=== PATIENT | male | born 1930 | race Caucasian/White ===

== ENCOUNTER 2016-11-02 09:29 | Outpatient (CLI) | payer MEDICARE, OTHER | END 2016-11-02 09:30 | disposition home or self-care (01) | DX: I48.91 Unspecified atrial fibrillation (principal) ==

== ENCOUNTER 2016-11-29 08:00 | Outpatient (CLI) | payer MEDICARE, OTHER | END 2016-11-29 08:01 | disposition home or self-care (01) | DX: I48.91 Unspecified atrial fibrillation (principal) ==

== ENCOUNTER 2016-12-27 08:00 | Outpatient (CLI) | payer MEDICARE, OTHER | END 2016-12-27 08:01 | disposition home or self-care (01) | DX: I48.91 Unspecified atrial fibrillation (principal) ==

== ENCOUNTER 2017-01-23 08:00 | Outpatient (CLI) | payer MEDICARE, OTHER | END 2017-01-23 08:01 | disposition home or self-care (01) | DX: I48.91 Unspecified atrial fibrillation (principal) ==

== ENCOUNTER 2017-02-20 08:00 | Outpatient (CLI) | payer MEDICARE, OTHER | END 2017-02-20 08:01 | disposition home or self-care (01) | DX: I48.91 Unspecified atrial fibrillation (principal) ==

== ENCOUNTER 2017-03-21 08:00 | Outpatient (CLI) | payer MEDICARE, OTHER | END 2017-03-21 08:01 | disposition home or self-care (01) | LOC: LAB.N 08:00 | PROVIDERS: ATTEND Internal Medicine | DX: I48.91 Unspecified atrial fibrillation (principal) | CPT/HCPCS: 85610 ==

== ENCOUNTER 2017-03-28 08:00 | Outpatient (CLI) | payer MEDICARE, OTHER | END 2017-03-28 08:01 | disposition home or self-care (01) | LOC: LAB.N 08:00 | PROVIDERS: ATTEND Internal Medicine | DX: I48.91 Unspecified atrial fibrillation (principal) | CPT/HCPCS: 85610 ==

== ENCOUNTER 2017-04-12 23:42 | Outpatient (CLI) | payer MEDICARE, OTHER | END 2017-04-12 23:43 | disposition home or self-care (01) | LOC: LAB.N 23:42 | PROVIDERS: ATTEND Internal Medicine | DX: I48.91 Unspecified atrial fibrillation (principal) | CPT/HCPCS: 85610 ==

== ENCOUNTER 2017-04-26 09:15 | Outpatient (CLI) | payer MEDICARE, OTHER | END 2017-04-26 23:59 | disposition home or self-care (01) | LOC: LAB.N 09:15 | PROVIDERS: ATTEND Internal Medicine | DX: I48.91 Unspecified atrial fibrillation (principal) | CPT/HCPCS: 85610 ==

== ENCOUNTER 2017-05-10 08:00 | Outpatient (CLI) | payer MEDICARE, OTHER | END 2017-05-10 08:01 | disposition home or self-care (01) | LOC: LAB.N 08:00 | PROVIDERS: ATTEND Internal Medicine | DX: I48.91 Unspecified atrial fibrillation (principal) | CPT/HCPCS: 85610 ==

== ENCOUNTER 2017-05-24 08:00 | Outpatient (CLI) | payer MEDICARE, OTHER | END 2017-05-24 08:01 | disposition home or self-care (01) | LOC: LAB.N 08:00 | PROVIDERS: ATTEND Internal Medicine | DX: I48.91 Unspecified atrial fibrillation (principal) | CPT/HCPCS: 85610 ==

== ENCOUNTER 2017-06-21 08:00 | Outpatient (CLI) | payer OTHER | END 2017-06-21 08:01 | disposition home or self-care (01) | LOC: LAB.N 08:00 | PROVIDERS: ATTEND Internal Medicine | DX: I48.91 Unspecified atrial fibrillation (principal) | CPT/HCPCS: 85610 ==

== ENCOUNTER 2017-06-26 07:06 | Outpatient (CLI) | payer OTHER, MEDICARE ==
[2017-06-26 07:52] LABS: CREATININE 0.8 mg/dL (0.6-1.2)
[2017-06-26] MEDS ORDERED: GADOBUTROL 7.5 MMOL/7.5 ML VIAL IVP ONE (08:38)
--- NOTE | 2017-06-26 11:31 | MRI Report ---
EXAM: MRI BRAIN AND INTERNAL AUDITORY CANAL (IAC) EXAM DATE: 06/26/2017 08:51 AM. CLINICAL HISTORY: PROFOUND HEARING LOSS. COMPARISON: None. TECHNIQUE: Multiplanar, multisequence T1-weighted and fluid-sensitive MRI sequences of the brain and IACs were performed. Other: None. IV Contrast: 7.5 cc GADAVIST. FINDINGS: Brain Volume: Normal for age. Parenchyma/Dura: No acute parenchymal hemorrhage, mass, or midline shift. Mild bilateral areas of T2/ FLAIR signal hyperintensity seen. No areas of restricted diffusion to suggest acute infarct. Pituitary: Normal. Internal Auditory Canals (IACs): Normal. No cranial nerve lesion or inflammatory process identified. Ventricles/Cisterns: No definite abnormal extra-axial fluid collection/mass seen. 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 Ventricles and sulci appear prominent but victor manuel ropriate for extent of volume loss. Cisterns are patent. Fluid is seen within Meckel's caves. Sinuses: Mild mucosal thickening of the ethmoid air cells. Mastoid air cells and middle ear cavities are clear. The semicircular canals and cochlea appear normal. Orbits: Changes of bilateral lens replacement. Vasculature: Visualized major intracranial flow voids appear maintained. Dural sinuses appear patent. Bones: Normal. Other: No definite areas of abnormal postcontrast enhancement seen. IMPRESSION: 1. No definite acute infarct, acute intracranial hemorrhage, mass, hydrocephalus, or abnormal postcon trast enhancement. 2. The cerebellopontine angles and internal auditory canals appear clear with no mass or masslike enh ancement seen. 3. The semicircular canals and cochlea appear normal and demonstrate normal fluid signal intensity. 4. Mild white matter changes that while nonspecific most likely represent sequela of chronic small ve ssel ischemic disease. [facility] Referring Provider Line: [phone] SITE ID: [id number]
== END 2017-06-26 07:07 | disposition home or self-care (01) ==
LOC: LAB 07:06
PROVIDERS: ATTEND Physician Assistant Surgical
DX: H91.90 Unspecified hearing loss, unspecified ear (principal)
CPT/HCPCS: 36415; 70543; 82565; A9585

== ENCOUNTER 2017-07-19 15:15 | Outpatient (CLI) | payer MEDICARE, OTHER | END 2017-07-19 15:16 | disposition home or self-care (01) | LOC: LAB.N 15:15 | PROVIDERS: ATTEND Internal Medicine | DX: I48.91 Unspecified atrial fibrillation (principal) | CPT/HCPCS: 85610 ==

== ENCOUNTER 2017-08-30 08:03 | Outpatient (CLI) | payer MEDICARE, OTHER | END 2017-08-30 08:04 | disposition home or self-care (01) | LOC: LAB.N 08:03 | PROVIDERS: ATTEND Internal Medicine | DX: I48.91 Unspecified atrial fibrillation (principal) | CPT/HCPCS: 85610 ==

== ENCOUNTER 2017-09-29 08:00 | Outpatient (CLI) | payer MEDICARE, OTHER | END 2017-09-29 08:01 | disposition home or self-care (01) | LOC: LAB.N 08:00 | PROVIDERS: ATTEND Internal Medicine | DX: I48.91 Unspecified atrial fibrillation (principal) | CPT/HCPCS: 85610 ==

== ENCOUNTER 2017-10-12 08:11 | Outpatient (CLI) | payer MEDICARE, OTHER | END 2017-10-12 08:12 | disposition home or self-care (01) | LOC: LAB.N 08:11 | PROVIDERS: ATTEND Internal Medicine | DX: I48.91 Unspecified atrial fibrillation (principal) | CPT/HCPCS: 85610 ==

== ENCOUNTER 2017-10-26 08:00 | Outpatient (CLI) | payer MEDICARE, OTHER | END 2017-10-26 08:01 | disposition home or self-care (01) | LOC: LAB.N 08:00 | PROVIDERS: ATTEND Internal Medicine | DX: I48.91 Unspecified atrial fibrillation (principal) | CPT/HCPCS: 85610 ==

== ENCOUNTER 2017-11-22 08:51 | Outpatient (CLI) | payer MEDICARE | END 2017-11-22 08:52 | disposition home or self-care (01) | LOC: LAB.N 08:51 | PROVIDERS: ATTEND Internal Medicine | DX: I48.91 Unspecified atrial fibrillation (principal) | CPT/HCPCS: 85610 ==

== ENCOUNTER 2017-12-20 08:00 | Outpatient (CLI) | payer MEDICARE | END 2017-12-20 08:01 | disposition home or self-care (01) | LOC: LAB.N 08:00 | PROVIDERS: ATTEND Internal Medicine | DX: I48.91 Unspecified atrial fibrillation (principal) | CPT/HCPCS: 85610 ==

== ENCOUNTER 2018-01-16 08:00 | Outpatient (CLI) | payer MEDICARE | END 2018-01-16 08:01 | disposition home or self-care (01) | LOC: LAB.N 08:00 | PROVIDERS: ATTEND Internal Medicine | DX: I48.91 Unspecified atrial fibrillation (principal) | CPT/HCPCS: 85610 ==

== ENCOUNTER 2018-01-30 08:15 | Outpatient (CLI) | payer MEDICARE | END 2018-01-30 08:16 | disposition home or self-care (01) | LOC: LAB.N 08:15 | PROVIDERS: ATTEND Internal Medicine | DX: I48.91 Unspecified atrial fibrillation (principal) | CPT/HCPCS: 85610 ==

== ENCOUNTER 2018-02-28 07:54 | Outpatient (CLI) | payer MEDICARE | END 2018-02-28 07:55 | LOC: LAB.N 07:54 | PROVIDERS: ATTEND Internal Medicine | DX: I48.91 Unspecified atrial fibrillation (principal) | CPT/HCPCS: 85610 ==

== ENCOUNTER 2018-03-13 08:00 | Outpatient (CLI) | payer MEDICARE | END 2018-03-13 08:01 | disposition home or self-care (01) | LOC: LAB.N 08:00 | PROVIDERS: ATTEND Internal Medicine | DX: I48.91 Unspecified atrial fibrillation (principal) | CPT/HCPCS: 85610 ==

== ENCOUNTER 2018-04-10 08:00 | Outpatient (CLI) | payer MEDICARE | END 2018-04-10 08:01 | disposition home or self-care (01) | LOC: LAB.N 08:00 | PROVIDERS: ATTEND Internal Medicine | DX: I48.91 Unspecified atrial fibrillation (principal) | CPT/HCPCS: 85610 ==

== ENCOUNTER 2018-05-09 08:00 | Outpatient (CLI) | payer MEDICARE | END 2018-05-09 08:01 | LOC: LAB.N 08:00 | PROVIDERS: ATTEND Internal Medicine | DX: I48.91 Unspecified atrial fibrillation (principal) | CPT/HCPCS: 85610 ==

== ENCOUNTER 2018-06-12 08:58 | Outpatient (CLI) | payer MEDICARE | END 2018-06-12 08:59 | disposition home or self-care (01) | LOC: LAB.N 08:58 | PROVIDERS: ATTEND Internal Medicine | DX: I48.91 Unspecified atrial fibrillation (principal) | CPT/HCPCS: 85610 ==

== ENCOUNTER 2018-07-12 10:37 | Outpatient (CLI) | payer MEDICARE | END 2018-07-12 10:38 | disposition home or self-care (01) | LOC: LAB 10:37 | PROVIDERS: ATTEND Internal Medicine | DX: I48.91 Unspecified atrial fibrillation (principal) | CPT/HCPCS: 85610 ==

== ENCOUNTER 2018-08-07 07:52 | Outpatient (CLI) | payer MEDICARE | END 2018-08-07 07:53 | disposition home or self-care (01) | LOC: LAB.N 07:52 | PROVIDERS: ATTEND Internal Medicine | DX: I48.91 Unspecified atrial fibrillation (principal) | CPT/HCPCS: 85610 ==

== ENCOUNTER 2018-08-21 08:00 | Outpatient (CLI) | payer MEDICARE ==
[2018-08-21 12:41] LABS: ALBUMIN 4.1 g/dL (3.2-5.5); ALBUMIN/GLOBULIN RATIO 1.4 (1.0-2.2); ALKALINE PHOSPHATASE 85 IU/L (42-121); ALT ALANINE AMINOTRANSFERASE 21 IU/L (10-60); AST ASPARTATE AMINOTRANSFERASE 22 IU/L (10-42); BILIRUBIN,TOTAL 1.1 mg/dL (0.2-1.0); BUN - BLOOD UREA NITROGEN 21 mg/dL (6-20); CALCIUM 8.4 mg/dL (8.5-10.3); CARBON DIOXIDE - CO2 28 mmol/L (21-32); CHLORIDE 105 mmol/L (101-111); CHOL/HDL RATIO 4.1 (<5.0); CHOLESTEROL 154 mg/dL; CREATININE 0.7 mg/dL (0.6-1.2); GFR - MDRD 106 (>89); GLUCOSE 108 mg/dL (70-100); HDL CHOLESTEROL 38 mg/dL; LDL CHOLESTEROL,CALCULATED 97 mg/dL; LDL/HDL RATIO 2.6 (<3.6); SODIUM 139 mmol/L (135-145); VLDL CHOLESTEROL 19 mg/dL
[2018-08-21 12:43] LABS: BASOPHILS % (AUTO) 0.5 %; EOSINOPHILS # (AUTO) 0.1 10^3/uL (0.0-0.7); EOSINOPHILS % (AUTO) 1.5 %; HGB - HEMOGLOBIN 15.7 g/dL (14.0-18.0); LYMPHOCYTES # (AUTO) 1.7 10^3/uL (1.5-3.5); LYMPHOCYTES % (AUTO) 29.3 %; MEAN CORPUSCULAR HEMOGLOBIN 31.5 pg (27.0-31.0); MEAN CORPUSCULAR VOLUME 92.5 fL (80.0-94.0); MEAN PLATELET VOLUME 8.5 fL (7.4-11.4); MONOCYTES # (AUTO) 0.5 10^3/uL (0.0-1.0); MONOCYTES % (AUTO) 9.1 %; NEUTROPHILS # (AUTO) 3.5 10^3/uL (1.5-6.6); NEUTROPHILS % (AUTO) 59.6 %; PLT - PLATELET COUNT 167 10^3/uL (130-450); RED BLOOD COUNT 4.99 10^6/uL (4.70-6.10); RED CELL DISTRIBUTION WIDTH 14.6 % (12.0-15.0); WHITE BLOOD COUNT 5.8 x10^3/uL (4.8-10.8)
[2018-08-21 12:51] LABS: INR 2.1 (0.8-1.2); PT - PROTHROMBIN TIME 23.5 secs (9.9-12.6)
== END 2018-08-21 08:01 | disposition home or self-care (01) ==
LOC: LAB.N 08:00
PROVIDERS: ATTEND Internal Medicine
DX: I48.91 Unspecified atrial fibrillation (principal); E78.5 Hyperlipidemia, unspecified; Z79.01 Long term (current) use of anticoagulants; I10 Essential (primary) hypertension
CPT/HCPCS: 36415; 80053; 80061; 83721; 84443; 85025; 85610

== ENCOUNTER 2018-08-28 11:21 | Outpatient (CLI) | payer MEDICARE ==
[2018-08-28 16:58] LABS: HB2 TOTAL 16.8 g/dL; HEMOGLOBIN A1C 0.62 g/dL; HEMOGLOBIN A1C % 5.5 % (4.6-6.2)
== END 2018-08-28 11:22 | disposition home or self-care (01) ==
LOC: LAB.R 11:21
PROVIDERS: ATTEND Internal Medicine
DX: R73.9 Hyperglycemia, unspecified (principal)
CPT/HCPCS: 83036

== ENCOUNTER 2018-09-18 08:00 | Outpatient (CLI) | payer MEDICARE | END 2018-09-18 23:59 | disposition home or self-care (01) | LOC: LAB.N 08:00 | PROVIDERS: ATTEND Internal Medicine | DX: I48.91 Unspecified atrial fibrillation (principal) | CPT/HCPCS: 85610 ==

== ENCOUNTER 2018-10-16 08:00 | Outpatient (CLI) | payer MEDICARE | END 2018-10-16 23:59 | disposition home or self-care (01) | LOC: LAB.N 08:00 | PROVIDERS: ATTEND Internal Medicine | DX: I48.91 Unspecified atrial fibrillation (principal) | CPT/HCPCS: 85610 ==

== ENCOUNTER 2018-11-14 08:00 | Outpatient (CLI) | payer MEDICARE | END 2018-11-14 23:59 | disposition home or self-care (01) | LOC: LAB.N 08:00 | PROVIDERS: ATTEND Internal Medicine | DX: I48.91 Unspecified atrial fibrillation (principal) | CPT/HCPCS: 85610 ==

== ENCOUNTER 2018-12-26 11:08 | Outpatient (CLI) | payer MEDICARE | END 2018-12-26 23:59 | LOC: LAB.N 11:08 | PROVIDERS: ATTEND Family Medicine | DX: I48.91 Unspecified atrial fibrillation (principal) | CPT/HCPCS: 85610 ==

== ENCOUNTER 2019-01-22 08:00 | Outpatient (CLI) | payer MEDICARE | END 2019-01-22 23:59 | disposition home or self-care (01) | LOC: LAB.N 08:00 | PROVIDERS: ATTEND Family Medicine | DX: I48.91 Unspecified atrial fibrillation (principal) | CPT/HCPCS: 85610 ==

== ENCOUNTER 2019-02-19 08:00 | Outpatient (CLI) | payer MEDICARE | END 2019-02-19 23:59 | disposition home or self-care (01) | LOC: LAB.N 08:00 | PROVIDERS: ATTEND Family Medicine | DX: I48.91 Unspecified atrial fibrillation (principal) | CPT/HCPCS: 85610 ==

== ENCOUNTER 2019-03-05 12:28 | Emergency (ER) | payer MEDICARE, OTHER ==
[2019-03-05 13:14] LABS: BILIRUBIN,URINE NEGATIVE (NEGATIVE); GLUCOSE, URINE (UA) NEGATIVE (NEGATIVE); KETONES,URINE (UA) TRACE mg/dL (NEGATIVE); LEUKOCYTE ESTERASE, URINE NEGATIVE (NEGATIVE); NITRITE,URINE POSITIVE (NEGATIVE); OCCULT BLOOD,URINE LARGE (NEGATIVE); PROTEIN,URINE 100 mg/dL (NEGATIVE); UROBILINOGEN,URINE 0.2 (NORMAL) E.U./dL (NORMAL)
[2019-03-05 13:20] LABS: BASOPHILS # (AUTO) 0.1 10^3/uL (0.0-0.1); BASOPHILS % (AUTO) 1.1 %; EOSINOPHILS % (AUTO) 0.2 %; HGB - HEMOGLOBIN 16.2 g/dL (14.0-18.0); LYMPHOCYTES # (AUTO) 0.8 10^3/uL (1.5-3.5); LYMPHOCYTES % (AUTO) 7.2 %; MEAN CORPUSCULAR HEMOGLOBIN 30.3 pg (27.0-31.0); MEAN CORPUSCULAR HGB CONC 33.7 g/dL (32.0-36.0); MEAN CORPUSCULAR VOLUME 90.1 fL (80.0-94.0); MEAN PLATELET VOLUME 8.4 fL (7.4-11.4); MONOCYTES # (AUTO) 0.6 10^3/uL (0.0-1.0); MONOCYTES % (AUTO) 5.6 %; NEUTROPHILS # (AUTO) 9.2 10^3/uL (1.5-6.6); NEUTROPHILS % (AUTO) 85.9 %; PLT - PLATELET COUNT 167 10^3/uL (130-450); RED BLOOD COUNT 5.32 10^6/uL (4.70-6.10); WHITE BLOOD COUNT 10.7 x10^3/uL (4.8-10.8)
[2019-03-05 13:23] LABS: CLARITY,URINE CLOUDY (CLEAR)
[2019-03-05 13:27] LABS: BACTERIA,URINE Few /HPF (None Seen); RBC,URINE TNTC /HPF (0-5); SQUAMOUS EPITHELIAL CELL,UR FEW Squamous (<= Few)
[2019-03-05 13:35] LABS: ALBUMIN 4.6 g/dL (3.2-5.5); ALBUMIN/GLOBULIN RATIO 1.5 (1.0-2.2); BILIRUBIN,TOTAL 1.3 mg/dL (0.2-1.0); CALCIUM 8.6 mg/dL (8.5-10.3); CREATININE 0.9 mg/dL (0.6-1.2); TOTAL PROTEIN 7.7 g/dL (6.7-8.2)
--- NOTE | 2019-03-05 13:41 | ED Physician Documentation ---
PD HPI MALE - Stated complaint Stated Complaint: BLOOD IN URINE/abd pain - Chief complaint Chief Complaint: Abd Pain - History obtained from History obtained from: Patient - History of Present Illness Timing - onset: Today Timing - duration: Hours Timing - details: Gradual onset, Still present Associated symptoms: Urinary frequency Similar symptoms before: Has not had sx before Recently seen: Not recently seen - Additional information Additional information: 88-year-old male has developed urinary urgency with hematuria today and he is come to the emergency department for evaluation. He has not had fever or vomiting. Review of Systems Constitutional: denies: Fever GI: denies: Vomiting : reports: Dysuria, Frequency, Hematuria Skin: denies: Rash, Lesions Musculoskeletal: denies: Neck pain, Back pain, Extremity pain Neurologic: denies: Generalized weakness, Focal weakness, Numbness PD PAST MEDICAL HISTORY - Past Medical History Past Medical History: Yes Cardiovascular: Hypertension Respiratory: Shortness of breath Endocrine/Autoimmune: None GI: None : None HEENT: None Psych: Anxiety Musculoskeletal: None Derm: None - Past Surgical History Past Surgical History: No - Present Medications Home Medications: Ambulatory Orders Medication Instructions Recorded Confirmed RX: Furosemide 20 mg ORAL DAILY 11/28/15 03/05/19 RX: Lisinopril 20 mg ORAL DAILY 11/28/15 03/05/19 RX: Metoprolol Tartrate 25 mg ORAL BID 11/28/15 03/05/19 RX: Pravastatin [Pravachol] 20 mg ORAL DAILY 11/28/15 03/05/19 Warfarin [Coumadin] 5 mg ORAL DAILY 11/28/15 03/05/19 Sulfamethoxazole/Trimethoprim 1 each PO BID #14 tablet 03/05/19 [Sulfamethoxazole-Tmp Ds Tablet] - Allergies Allergies/Adverse Reactions: Allergies Allergy/AdvReac Type Severity Reaction Status Date / Time Penicillins Allergy Unknown Verified 03/05/19 12:37 - Social History Does the pt smoke?: No Smoking Status: Never smoker Does the pt drink ETOH?: No Does the pt have substance abuse?: No - Immunizations Immunizations are current?: Yes PD ED PE NORMAL - Vitals Vital signs reviewed: Yes (hypertensive ) - General General: No acute distress, Well developed/nourished, Other (hard of hearing ) - HEENT HEENT: Atraumatic, PERRL, EOMI - Neck Neck: Supple, no meningeal sign - Cardiac Cardiac: RRR, No murmur - Respiratory Respiratory: No respiratory distress, Clear bilaterally - Abdomen Abdomen: Soft, Non tender - Back Back: No CVA TTP, No spinal TTP - Derm Derm: Normal color, Warm and dry, No rash - Extremities Extremities: No deformity, No edema - Neuro Neuro: Alert and oriented X 3, molding sander 2-12 intact, No motor deficit, No sensory deficit, Normal speech Eye Opening: Spontaneous Motor: Obeys Commands Verbal: Oriented GCS Score: 15 - Psych Psych: Normal mood, Normal affect Results - Vitals Vitals: Vital Signs - 24 hr 03/05/19 03/05/19 12:36 14:44 Temperature 36.7 C 36.8 C Heart Rate 91 97 Respiratory 18 18 Rate Blood Pressure 158/72 H 184/90 H O2 Saturation 100 98 Oxygen O2 Source Room air - Labs Labs: Laboratory Tests 03/05/19 03/05/19 03/05/19 13:00 13:08 13:08 WBC 10.7 RBC 5.32 Hgb 16.2 Hct 47.9 MCV 90.1 MCH 30.3 MCHC 33.7 RDW 15.0 Plt Count 167 MPV 8.4 Neut # (Auto) 9.2 H Lymph # (Auto) 0.8 L [place] # (Auto) 0.6 Eos # (Auto) 0.0 Baso # (Auto) 0.1 Absolute Nucleated RBC 0.00 Nucleated RBC % 0.0 PT INR Sodium 139 Potassium 3.7 Chloride 103 Carbon Dioxide 23 Anion Gap 13.0 BUN 24 H Creatinine 0.9 Estimated GFR (MDRD) 79 L Glucose 163 H Calcium 8.6 Total Bilirubin 1.3 H AST 28 ALT 25 Alkaline Phosphatase 98 Total Protein 7.7 Albumin 4.6 Globulin 3.1 Albumin/Globulin Ratio 1.5 Lipase 20 L Urine Color BROWN Urine Clarity CLOUDY Urine pH 5.0 Ur Specific Tolar 1.025 Urine Protein 100 H Urine Glucose (UA) NEGATIVE Urine Ketones TRACE Urine Occult Blood LARGE H Urine Nitrite POSITIVE H Urine Bilirubin NEGATIVE Urine Urobilinogen 0.2 (NORMAL) Ur Leukocyte Esterase NEGATIVE Urine RBC TNTC H Urine WBC 4-5 Ur Squamous Epith Cells FEW Squamous Urine Bacteria Few Ur Microscopic Review INDICATED Urine Culture Comments INDICATED 03/05/19 13:08 WBC RBC Hgb Hct MCV MCH MCHC RDW Plt Count MPV Neut # (Auto) Lymph # (Auto) [place] # (Auto) Eos # (Auto) Baso # (Auto) Absolute Nucleated RBC Nucleated RBC % PT 31.0 H INR 2.8 H Sodium Potassium Chloride Carbon Dioxide Anion Gap BUN Creatinine Estimated GFR (MDRD) Glucose Calcium Total Bilirubin AST ALT Alkaline Phosphatase Total Protein Albumin Globulin Albumin/Globulin Ratio Lipase Urine Color Urine Clarity Urine pH Ur Specific Tolar Urine Protein Urine Glucose (UA) Urine Ketones Urine Occult Blood Urine Nitrite Urine Bilirubin Urine Urobilinogen Ur Leukocyte Esterase Urine RBC Urine WBC Ur Squamous Epith Cells Urine Bacteria Ur Microscopic Review Urine Culture Comments PD MEDICAL DECISION MAKING - ED course Complexity details: reviewed old records, reviewed results, re-evaluated patient, considered differential, d/w patient, d/w family ED course: 88 y/o male on coumadin with hematuria and + nitrite on his urine is administered rocephin IM and we will place him on some . Departure - Departure Disposition: Home, Self Care Clinical Impression: Urinary tract infection Qualifiers: Urinary tract infection type: acute cystitis Hematuria presence: with hematuria Qualified Code(s): N30.01 - Acute cystitis with hematuria Condition: Stable Instructions: ED UTI Cystitis Male Follow-Up: Hany Amin MD [Primary Care Provider] - Prescriptions: Sulfamethoxazole/Trimethoprim [Sulfamethoxazole-Tmp Ds Tablet] 1 each PO BID #14 tablet Comments: Today it appears you have a urinary tract infection and we are placing you on an antibiotic. Because you are on Coumadin you will need to have your INR rechecked in about 3 days. Follow-up with your primary care doctor. Discharge Date/Time: 03/05/19 14:47
[2019-03-05 13:55] LABS: INR 2.8 (0.8-1.2)
[2019-03-05] MEDS ORDERED: cefTRIAXone 1 GM in SODIUM CHLORIDE 0.9% MINIBAG 100 ML IV STA (14:16)
[2019-03-05] MEDS ORDERED: LIDOCAINE 1% 2 ML VIAL MC ONE (14:22)
[2019-03-05] MEDS ORDERED: cefTRIAXone 1 GM VIAL IM STA (14:22)
[2019-03-05 14:44] VITALS: BP 184/90
== END 2019-03-05 14:47 | disposition home or self-care (01) ==
LOC: ED 12:28
DX: N30.01 Acute cystitis with hematuria (principal); I10 Essential (primary) hypertension; Z79.01 Long term (current) use of anticoagulants
CPT/HCPCS: 36415; 80053; 81001; 81003; 83690; 85025; 85610; 87086; 96372; 99283

== ENCOUNTER 2019-03-08 09:41 | Outpatient (CLI) | payer MEDICARE, OTHER | END 2019-03-08 09:42 | disposition home or self-care (01) | LOC: LAB 09:41 | PROVIDERS: ATTEND Family Medicine | DX: I48.91 Unspecified atrial fibrillation (principal) | CPT/HCPCS: 85610 ==

== ENCOUNTER 2019-03-11 08:00 | Outpatient (CLI) | payer MEDICARE, OTHER | END 2019-03-11 23:59 | disposition home or self-care (01) | LOC: LAB.N 08:00 | PROVIDERS: ATTEND Family Medicine | DX: I48.91 Unspecified atrial fibrillation (principal) | CPT/HCPCS: 85610 ==

== ENCOUNTER 2019-03-14 08:46 | Outpatient (CLI) | payer MEDICARE, OTHER | END 2019-03-14 23:59 | disposition home or self-care (01) | LOC: LAB.N 08:46 | PROVIDERS: ATTEND Family Medicine | DX: I48.91 Unspecified atrial fibrillation (principal) | CPT/HCPCS: 85610 ==

== ENCOUNTER 2019-03-21 07:37 | Outpatient (CLI) | payer MEDICARE, OTHER | END 2019-03-21 23:59 | disposition home or self-care (01) | LOC: LAB.N 07:37 | PROVIDERS: ATTEND Family Medicine | DX: I48.91 Unspecified atrial fibrillation (principal) | CPT/HCPCS: 85610 ==

== ENCOUNTER 2019-03-28 08:00 | Outpatient (CLI) | payer MEDICARE, OTHER | END 2019-03-28 23:59 | disposition home or self-care (01) | LOC: LAB.N 08:00 | PROVIDERS: ATTEND Family Medicine | DX: I48.91 Unspecified atrial fibrillation (principal) | CPT/HCPCS: 85610 ==

== ENCOUNTER 2019-04-22 09:33 | Outpatient (CLI) | payer MEDICARE, OTHER | END 2019-04-22 23:59 | disposition home or self-care (01) | LOC: LAB.N 09:33 | PROVIDERS: ATTEND Family Medicine | DX: I48.91 Unspecified atrial fibrillation (principal) | CPT/HCPCS: 85610 ==

== ENCOUNTER 2019-05-21 08:00 | Outpatient (CLI) | payer MEDICARE, OTHER | END 2019-05-21 23:59 | disposition home or self-care (01) | LOC: LAB.N 08:00 | PROVIDERS: ATTEND Family Medicine | DX: I48.91 Unspecified atrial fibrillation (principal) | CPT/HCPCS: 85610 ==

== ENCOUNTER 2019-06-18 08:00 | Outpatient (CLI) | payer MEDICARE, OTHER | END 2019-06-18 23:59 | disposition home or self-care (01) | LOC: LAB.N 08:00 | PROVIDERS: ATTEND Family Medicine | DX: I48.91 Unspecified atrial fibrillation (principal) | CPT/HCPCS: 85610 ==

== ENCOUNTER 2019-07-16 08:00 | Outpatient (CLI) | payer MEDICARE, OTHER | END 2019-07-16 23:59 | LOC: LAB.N 08:00 | PROVIDERS: ATTEND Family Medicine | DX: I48.91 Unspecified atrial fibrillation (principal) | CPT/HCPCS: 85610 ==

== ENCOUNTER 2019-07-17 08:11 | Outpatient (CLI) | payer MEDICARE, OTHER ==
[2019-07-17] MEDS ORDERED: IOVERSOL 320 100 ML VIAL IVP ONE ×2 (08:28→09:44)
[2019-07-17 09:24] LABS: CREATININE 0.8 mg/dL (0.6-1.2)
--- NOTE | 2019-07-18 13:55 | CT Report ---
Reason: GROSS HEMATURIA Procedure Date: 07/17/2019 Accession Number: [id number] / [id number] Procedure: CT - IVP CPT Code: FULL RESULT: EXAM: CT ABDOMEN AND PELVIS WITHOUT AND WITH CONTRAST (CT IVP) EXAM DATE: 07/17/2019 10:01 AM. CLINICAL HISTORY: GROSS HEMATURIA. COMPARISONS: None. TECHNIQUE: Routine helical imaging was performed through the kidneys, ureters and bladder in the precontrast, postcontrast and delayed phase. IV Contrast: OPTI 320 100ML. Reconstructions: Coronal and sagittal. In accordance with CT protocol optimization, one or more of the following dose reduction techniques were utilized for this exam: automated exposure control, adjustment of mA and/or KV based on patient size, or use of iterative reconstructive technique. FINDINGS: Lung Bases: Linear changes are noted in the lung bases most likely represent scarring or atelectasis. Solid organs: Scattered low density lesions are seen within the liver that most likely represents cysts. No enhancing liver lesion is identified. The spleen, pancreas, and adrenal glands are without evidence of a mass. Kidneys/Bladder: Right Kidney/Ureter: No renal or ureteral stones. No hydronephrosis or hydroureter. No masses. Left Kidney/Ureter: No renal or ureteral stones. No hydronephrosis or hydroureter. No masses. Bladder: No stones. No wall thickening or mass. Peritoneal Cavity/Bowel: Normal. No free fluid, free air or adenopathy. There is diverticulosis of the descending and sigmoid colon without evidence of diverticulitis. Pelvic Organs: The prostate gland is enlarged. It measures 5.9 x 5.0 cm. Nonspecific calcifications are noted. Vasculature: There is a small infrarenal abdominal aortic aneurysm measuring 3.5 cm. Aneurysmal dilatation of the right common iliac artery is noted. It measures 2.5 cm Bones: There is a compression fracture of L2 with 30-40% loss of the normal vertebral body height. IMPRESSION: No urinary tract masses, stones or obstruction. Small infrarenal abdominal aortic aneurysm. 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 Moderate compression fracture of L2. This may be secondary to osteoporosis. If further characterization is needed, a DEXA scan may be beneficial. Diverticulosis of the descending and sigmoid colon without evidence of diverticulitis. Nonspecific enlargement of the prostate gland. [facility]
== END 2019-07-17 08:12 | disposition home or self-care (01) ==
LOC: DI 08:11
PROVIDERS: ATTEND Urology
DX: R31.0 Gross hematuria (principal); I71.4 Abdominal aortic aneurysm, without rupture; I72.3 Aneurysm of iliac artery; I48.91 Unspecified atrial fibrillation
CPT/HCPCS: 36415; 74178; 82565; 84520; 85610; Q9967

== ENCOUNTER 2019-08-13 08:15 | Outpatient (CLI) | payer MEDICARE, OTHER | END 2019-08-13 23:59 | disposition home or self-care (01) | LOC: LAB.N 08:15 | PROVIDERS: ATTEND Internal Medicine | DX: I48.91 Unspecified atrial fibrillation (principal) | CPT/HCPCS: 85610 ==

== ENCOUNTER 2019-08-27 08:00 | Outpatient (CLI) | payer MEDICARE, OTHER | END 2019-08-27 23:59 | disposition home or self-care (01) | LOC: LAB.N 08:00 | PROVIDERS: ATTEND Family Medicine | DX: I48.91 Unspecified atrial fibrillation (principal) | CPT/HCPCS: 85610 ==

== ENCOUNTER 2019-09-10 09:39 | Outpatient (CLI) | payer MEDICARE, OTHER | END 2019-09-10 23:59 | disposition home or self-care (01) | LOC: LAB.N 09:39 | PROVIDERS: ATTEND Internal Medicine | DX: I48.91 Unspecified atrial fibrillation (principal) | CPT/HCPCS: 85610 ==